=== PATIENT | female | born 1990 | race Caucasian/White ===

== ENCOUNTER 2019-01-22 23:15 | Emergency (ER) | payer MEDICAID, OTHER ==
[~2019-01-22] VITALS: Ht 172.7 cm; Wt 93.3 kg
[~2019-01-22 23:15] MED LIST: NITR-58 PO; PHEN-538 PO
[2019-01-22 23:19] VITALS: Ht 172.7 cm; Wt 93.3 kg
[2019-01-23] MEDS ORDERED: KETOROLAC 15 MG INJ IV STA (00:37)
[2019-01-23] MEDS ORDERED: SOD CHLORIDE 0.9% 500 ML IV ONE (01:00)
[2019-01-23] MEDS ORDERED: CEFTRIAXONE 1 GM/50 ML (PMX) 50 ML IVPB ONE (02:30)
[2019-01-23] MEDS ORDERED: ACETAMINOPHEN 325 MG TAB PO ONE (04:00)
[2019-01-23 04:03] VITALS: BP 109/56; PULSE 117; RESP 17
== END 2019-01-23 04:25 | disposition home or self-care (01) ==
LOC: FTE 23:15
DX: N39.0 Urinary tract infection, site not specified (principal)
CPT/HCPCS: 80053; 81001; 81025; 85025; 96361; 96374; 96375; J0696; J1885; J7040; Z7502; Z7610